=== PATIENT | male | born 1965 | race Caucasian/White ===

== ENCOUNTER 2021-04-05 18:39 | Emergency (ER) | payer MEDICARE ==
[~2021-04-05] VITALS: Ht 172.7 cm; Wt 85.3 kg
[2021-04-05 22:39] LABS: BASOPHILS # (AUTO) 0.1 (0.0-0.1); BASOPHILS % 0.6 % (0.0-1.0); EOSINOPHILS # (AUTO) 0.3 (0.0-0.4); EOSINOPHILS % 2.2 % (0.0-6.0); HEMATOCRIT 50.7 % (38.2-49.6); HEMOGLOBIN 16.5 g/dL (14.0-18.0); LYMPHOCYTES # (AUTO) 2.3 (1.0-3.2); LYMPHOCYTES % 20.4 % (18.0-39.1); MEAN CORPUSCULAR HEMOGLOBIN 30.8 pg (28-32); MEAN CORPUSCULAR HGB CONC 32.5 g/dL (31-35); MEAN CORPUSCULAR VOLUME 94.8 fL (81-99); MONOCYTES # (AUTO) 0.7 (0.2-0.8); NEUTROPHILS # (AUTO) 7.9 (2.1-6.9); NEUTROPHILS % 70.4 % (38.7-80.0); PLATELET COUNT 227 x10e3/uL (140-360); RED BLOOD COUNT 5.35 x10e6/uL (4.3-5.7); RED CELL DISTRIBUTION WIDTH 13.3 % (11.7-14.4)
[2021-04-05] MEDS ORDERED: LIDOCAINE JELLY 2% 10ML URO-JET TOP ONE (22:45)
[2021-04-05 22:47] LABS: INR 0.98; PROTHROMBIN TIME 13.2 seconds (11.9-14.5)
[2021-04-05 22:48] LABS: PARTIAL THROMBOPLASTIN TIME 29.9 seconds (23.8-35.5)
[2021-04-05 22:55] LABS: ALBUMIN 4.5 g/dL (3.5-5.0); ALBUMIN/GLOBULIN RATIO 1.2 (0.8-2.0); ALKALINE PHOSPHATASE 110 IU/L (40-150); ANION GAP 14.7 mmol/L (8-16); BLOOD UREA NITROGEN 27 mg/dL (7-26); BUN/CREATININE RATIO 26 (6-25); CALCIUM 9.7 mg/dL (8.4-10.2); CARBON DIOXIDE 27 mmol/L (22-29); CHLORIDE 103 mmol/L (98-107); CREATININE, SERUM 1.05 mg/dL (0.72-1.25); EST GLOMERULAR FILTRATION RATE 73 ML/MIN (60-); GLUCOSE 107 mg/dL (74-118); POTASSIUM 3.7 mmol/L (3.5-5.1); SODIUM 141 mmol/L (136-145)
[2021-04-05 22:56] LABS: ALANINE AMINOTRANSFERASE < 6 IU/L (0-55)
== END 2021-04-05 23:50 | disposition home or self-care (01) ==
LOC: ER 19:28
DX: Z46.6 Encounter for fitting and adjustment of urinary device (principal); R33.9 Retention of urine, unspecified; G20 Parkinson's disease; D68.2 Hereditary deficiency of other clotting factors
CPT/HCPCS: 36415; 80053; 85025; 85610; 85730; 99284

== ENCOUNTER 2021-08-14 14:21 | Inpatient (IN) | payer MEDICARE ==
[~2021-08-14] VITALS: Ht 172.7 cm; Wt 85.3 kg
[2021-08-14] MEDS ORDERED: SODIUM CHLORIDE 0.9% 1000ML 1,000 ML IV STA ×2 (14:44→15:34)
[2021-08-14 15:14] LABS: BASOPHILS # (AUTO) 0.1 (0.0-0.1); BASOPHILS % 0.3 % (0.0-1.0); HEMOGLOBIN 15.2 g/dL (14.0-18.0); LYMPHOCYTES # (AUTO) 1.5 (1.0-3.2); LYMPHOCYTES % 4.1 % (18.0-39.1); MEAN CORPUSCULAR HEMOGLOBIN 31.1 pg (28-32); MEAN CORPUSCULAR VOLUME 94.3 fL (81-99); MONOCYTES # (AUTO) 2.3 (0.2-0.8); MONOCYTES % 6.1 % (4.4-11.3); NEUTROPHILS # (AUTO) 30.3 (2.1-6.9); NEUTROPHILS % 82.3 % (38.7-80.0); PLATELET COUNT 250 x10e3/uL (140-360); RED BLOOD COUNT 4.88 x10e6/uL (4.3-5.7); RED CELL DISTRIBUTION WIDTH 13.2 % (11.7-14.4)
[2021-08-14] MEDS ORDERED: MEROPENEM 1 GM in SODIUM CHLORIDE 0.9% 100 ML IV ONE (15:15)
[2021-08-14 15:26] LABS: INR 2.12; PARTIAL THROMBOPLASTIN TIME 55.1 seconds (23.8-35.5)
[2021-08-14 15:30] LABS: ALBUMIN 3.5 g/dL (3.5-5.0); ALBUMIN/GLOBULIN RATIO 0.8 (0.8-2.0); ANION GAP 19.6 mmol/L (8-16); CREATININE, SERUM 2.37 mg/dL (0.72-1.25); MAGNESIUM 1.8 MG/DL (1.3-2.1); POTASSIUM 4.6 mmol/L (3.5-5.1)
[2021-08-14 15:36] LABS: CREATINE KINASE MB 15.8 ng/mL (0-5.0)
[2021-08-14 15:45] LABS: CLARITY,URINE CLOUDY (CLEAR); COLOR,URINE AMBER (YELLOW)
[2021-08-14 15:46] LABS: KETONES,URINE 2+ (NEGATIVE); LEUKOCYTE ESTERASE ,URINE LARGE (NEGATIVE); NITRITE,URINE POSITIVE (NEGATIVE); PROTEIN,URINE DIPSTICK >=300 (NEGATIVE); URINE UROBILINOGEN 1 mg/dL (0.2 - 1)
[2021-08-14 15:47] LABS: B-TYPE NATRIURETIC PEPTIDE2 483.3 pg/mL (0-100)
[2021-08-14 15:48] LABS: BACTERIA,URINE MANY /HPF; EPITHELIAL CELLS,URINE RARE /LPF; RBC,URINE 0-5 /HPF (0-5); WBC,URINE (MAN) >50 /HPF (0-5)
[2021-08-14 15:51] LABS: AMORPHOUS SEDIMENT,URINE MODERATE (FEW)
[2021-08-14 15:53] LABS: CALCIUM OXALATE CRYSTALS,UR RARE (FEW)
[2021-08-14 16:26] LABS: BAND NEUTROPHILS % (MANUAL) 15 %; EOSINOPHILS % (MANUAL) 1 % (0-7); LYMPHOCYTES % (MANUAL) 5 % (19-48); MONOCYTES % (MANUAL) 7 % (3.4-9.0); NEUTROPHILS % (MANUAL) 72 % (40-74)
[2021-08-14 16:27] LABS: PLATELET ESTIMATE ADEQUATE; PLATELET MORPHOLOGY COMMENT NORMAL; RBC MORPHOLOGY COMMENT NORMAL
[2021-08-14] MEDS ORDERED: SINEMET 25-1001 EACH PO ×2 (16:33)
[2021-08-14] MEDS ORDERED: XARELTO10 MG PO (16:33)
[2021-08-14] MEDS ORDERED: MIDODRINE HCL5 MG PO (16:33)
[2021-08-14] MEDS ORDERED: D3 PO (16:34)
[2021-08-14] MEDS ORDERED: B12 ACTIVE1000 MCG PO (16:34)
[2021-08-14] MEDS ORDERED: FISH OIL 1,0001 EAC2 PO (16:35)
[2021-08-14] MEDS ORDERED: ONDANSETRON HCL INJ 2MG/ML 2ML 2 MG/ML VIAL IV PRN (17:45)
[2021-08-14] MEDS: ACETAMINOPHEN 1000 MG/100 ML IV SCH (17:47)
[2021-08-14] MEDS: FAMOTIDINE 20 MG/2 ML VIAL IV SCH (18:03)
[2021-08-14] MEDS: SODIUM CHLORIDE 0.9% 1000ML 1,000 ML IV SCH (18:03)
[2021-08-14] MEDS ORDERED: MIDODRINE 2.5 MG TAB PO SCH (19:00)
[2021-08-14] MEDS ORDERED: SODIUM CHLORIDE 0.9% 500ML 500 ML IV ONE (19:00)
[2021-08-14 20:10] VITALS: BP 85/57
[2021-08-14 21:05] LABS: CREATINE KINASE MB 11.6 ng/mL (0-5.0)
[2021-08-14 21:57] VITALS: BP 85/57
[2021-08-14] MEDS ORDERED: MEROPENEM 1 GM in SODIUM CHLORIDE 0.9% 100 ML 100 ML IV SCH (23:00)
[2021-08-15] VITALS (10 sets, daily range): BP systolic 83–112; BP diastolic 54–67
[2021-08-15] MEDS: SODIUM CHLORIDE 0.9% 1000ML 1,000 ML IV SCH ×3 (01:12→17:45)
[2021-08-15] MEDS: MEROPENEM 1 GM in SODIUM CHLORIDE 0.9% 100 ML IV SCH ×2 (02:50→15:53)
[2021-08-15] MEDS ORDERED: MEROPENEM 1 GM in SODIUM CHLORIDE 0.9% 100 ML 100 ML IV SCH (03:00)
[2021-08-15 03:42] LABS: BASOPHILS # (AUTO) 0.1 (0.0-0.1); BASOPHILS % 0.3 % (0.0-1.0); EOSINOPHILS % 0.1 % (0.0-6.0); HEMATOCRIT 42.2 % (38.2-49.6); HEMOGLOBIN 13.7 g/dL (14.0-18.0); LYMPHOCYTES # (AUTO) 1.9 (1.0-3.2); LYMPHOCYTES % 5.6 % (18.0-39.1); MEAN CORPUSCULAR HEMOGLOBIN 31.1 pg (28-32); MEAN CORPUSCULAR HGB CONC 32.5 g/dL (31-35); MEAN CORPUSCULAR VOLUME 95.9 fL (81-99); MONOCYTES # (AUTO) 1.5 (0.2-0.8); MONOCYTES % 4.3 % (4.4-11.3); NEUTROPHILS # (AUTO) 28.4 (2.1-6.9); NEUTROPHILS % 83.6 % (38.7-80.0); PLATELET COUNT 223 x10e3/uL (140-360); RED CELL DISTRIBUTION WIDTH 13.4 % (11.7-14.4)
[2021-08-15 03:53] LABS: ALBUMIN 2.7 g/dL (3.5-5.0); ALBUMIN/GLOBULIN RATIO 0.7 (0.8-2.0); ANION GAP 11.7 mmol/L (8-16); CALCIUM 8.7 mg/dL (8.4-10.2); CHOL/HDL RATIO 2.3 (3.9-4.7); CREATININE, SERUM 1.33 mg/dL (0.72-1.25); POTASSIUM 4.7 mmol/L (3.5-5.1)
[2021-08-15 03:59] LABS: CREATINE KINASE MB 12.3 ng/mL (0-5.0)
[2021-08-15] MEDS: FAMOTIDINE 20 MG/2 ML VIAL IV SCH ×2 (05:53→17:11)
[2021-08-15] MEDS: ACETAMINOPHEN 1000 MG/100 ML IV SCH ×3 (06:00→09:19)
[2021-08-15] MEDS: MIDODRINE 2.5 MG TAB PO SCH ×3 (09:19→16:15)
[2021-08-15] MEDS ORDERED: ACETAMINOPHEN 325 MG TAB PO PRN (10:15)
[2021-08-15] MEDS ORDERED: ASPIRIN 81 MG CHEW TAB PO ONE (10:15)
[2021-08-15 10:17] LABS: CREATINE KINASE MB 7.4 ng/mL (0-5.0)
[2021-08-15] MEDS: CHOLECALCIFEROL 1,000 UNIT TAB PO SCH (11:08)
[2021-08-15] MEDS: OMEGA 3 POLYUNSAT FATTY ACIDS 1000 MG SOFTGEL PO SCH (11:08)
[2021-08-15] MEDS ORDERED: CARBIDOPA/LEVODOPA 25/100 TAB PO SCH ×2 (11:30→13:00)
[2021-08-15] MEDS ORDERED: MIDODRINE HCL 5 MG TABLET PO SCH ×2 (15:00→16:00)
[2021-08-15] MEDS ORDERED: ACETAMINOPHEN 1000 MG/100 ML IV PRN (15:45)
[2021-08-15] MEDS: RIVAROXABAN 10 MG TABLET PO SCH (17:16)
[2021-08-15] MEDS: CARBIDOPA/LEVODOPA 25/100 TAB PO SCH ×2 (17:16→21:04)
[2021-08-16] VITALS (9 sets, daily range): BP systolic 92–123; BP diastolic 65–79
[2021-08-16] MEDS: SODIUM CHLORIDE 0.9% 1000ML 1,000 ML IV SCH ×3 (00:57→16:44)
[2021-08-16] MEDS: MEROPENEM 1 GM in SODIUM CHLORIDE 0.9% 100 ML IV SCH ×2 (02:42→14:36)
[2021-08-16] MEDS: FAMOTIDINE 20 MG/2 ML VIAL IV SCH (05:43)
[2021-08-16 05:55] LABS: BASOPHILS # (AUTO) 0.1 (0.0-0.1); BASOPHILS % 0.2 % (0.0-1.0); EOSINOPHILS # (AUTO) 0.2 (0.0-0.4); EOSINOPHILS % 0.8 % (0.0-6.0); HEMATOCRIT 37.4 % (38.2-49.6); LYMPHOCYTES # (AUTO) 1.9 (1.0-3.2); LYMPHOCYTES % 7.2 % (18.0-39.1); MEAN CORPUSCULAR HEMOGLOBIN 30.7 pg (28-32); MEAN CORPUSCULAR HGB CONC 32.1 g/dL (31-35); MEAN CORPUSCULAR VOLUME 95.7 fL (81-99); MONOCYTES % 3.6 % (4.4-11.3); NEUTROPHILS # (AUTO) 22.6 (2.1-6.9); NEUTROPHILS % 85.3 % (38.7-80.0); PLATELET COUNT 204 x10e3/uL (140-360); RED BLOOD COUNT 3.91 x10e6/uL (4.3-5.7); RED CELL DISTRIBUTION WIDTH 13.6 % (11.7-14.4)
[2021-08-16 06:45] LABS: ALBUMIN 2.4 g/dL (3.5-5.0); ALBUMIN/GLOBULIN RATIO 0.7 (0.8-2.0); ANION GAP 11.9 mmol/L (8-16); CALCIUM 8.8 mg/dL (8.4-10.2); CREATININE, SERUM 0.75 mg/dL (0.72-1.25); POTASSIUM 3.9 mmol/L (3.5-5.1)
[2021-08-16 07:44] LABS: CREATINE KINASE MB 1.9 ng/mL (0-5.0)
[2021-08-16] MEDS ORDERED: ONDANSETRON HCL 4 MG ORAL DISINTEGRATING TAB PO PRN (07:45)
[2021-08-16] MEDS: MIDODRINE 2.5 MG TAB PO SCH ×2 (08:00→12:00)
[2021-08-16] MEDS: MIDODRINE HCL 5 MG TABLET PO SCH ×3 (08:00→16:44)
[2021-08-16 08:22] LABS: BAND NEUTROPHILS % (MANUAL) 4 %; LYMPHOCYTES % (MANUAL) 1 % (19-48); MONOCYTES % (MANUAL) 2 % (3.4-9.0); NEUTROPHILS % (MANUAL) 93 % (40-74); PLATELET ESTIMATE ADEQUATE; PLATELET MORPHOLOGY COMMENT NORMAL; RBC MORPHOLOGY COMMENT NORMAL
[2021-08-16] MEDS: MECOBALAMIN 1000 MCG PO SCH (08:44)
[2021-08-16] MEDS: FAMOTIDINE 20 MG TAB PO SCH ×2 (09:00→21:00)
[2021-08-16] MEDS: CARBIDOPA/LEVODOPA 25/100 TAB PO SCH ×4 (09:00→21:00)
[2021-08-16] MEDS: CHOLECALCIFEROL 1,000 UNIT TAB PO SCH (09:00)
[2021-08-16] MEDS: OMEGA 3 POLYUNSAT FATTY ACIDS 1000 MG SOFTGEL PO SCH (09:00)
[2021-08-16] MEDS: RIVAROXABAN 10 MG TABLET PO SCH (16:44)
[2021-08-17] VITALS (14 sets, daily range): BP systolic 119–148; BP diastolic 71–94
[2021-08-17] MEDS: SODIUM CHLORIDE 0.9% 1000ML 1,000 ML IV SCH ×2 (01:40→08:02)
[2021-08-17] MEDS: MEROPENEM 1 GM in SODIUM CHLORIDE 0.9% 100 ML IV SCH ×2 (02:51→15:59)
[2021-08-17 06:47] LABS: BASOPHILS # (AUTO) 0.1 (0.0-0.1); BASOPHILS % 0.4 % (0.0-1.0); EOSINOPHILS # (AUTO) 0.2 (0.0-0.4); EOSINOPHILS % 1.1 % (0.0-6.0); HEMATOCRIT 38.4 % (38.2-49.6); HEMOGLOBIN 12.9 g/dL (14.0-18.0); LYMPHOCYTES # (AUTO) 1.3 (1.0-3.2); LYMPHOCYTES % 7.7 % (18.0-39.1); MEAN CORPUSCULAR HEMOGLOBIN 31.2 pg (28-32); MEAN CORPUSCULAR HGB CONC 33.6 g/dL (31-35); MEAN CORPUSCULAR VOLUME 92.8 fL (81-99); MONOCYTES # (AUTO) 0.8 (0.2-0.8); MONOCYTES % 4.5 % (4.4-11.3); NEUTROPHILS # (AUTO) 14.5 (2.1-6.9); NEUTROPHILS % 85.8 % (38.7-80.0); PLATELET COUNT 215 x10e3/uL (140-360); RED BLOOD COUNT 4.14 x10e6/uL (4.3-5.7); RED CELL DISTRIBUTION WIDTH 13.4 % (11.7-14.4)
[2021-08-17 07:22] LABS: ALBUMIN 2.3 g/dL (3.5-5.0); ALBUMIN/GLOBULIN RATIO 0.6 (0.8-2.0); ANION GAP 11.8 mmol/L (8-16); CREATININE, SERUM 0.74 mg/dL (0.72-1.25); POTASSIUM 3.8 mmol/L (3.5-5.1)
[2021-08-17] MEDS: MECOBALAMIN 1000 MCG PO SCH (07:34)
[2021-08-17 07:40] LABS: CALCIUM 8.4 mg/dL (8.4-10.2)
[2021-08-17] MEDS: OMEGA 3 POLYUNSAT FATTY ACIDS 1000 MG SOFTGEL PO SCH (08:02)
[2021-08-17] MEDS: FAMOTIDINE 20 MG TAB PO SCH ×2 (08:02→21:00)
[2021-08-17] MEDS: CARBIDOPA/LEVODOPA 25/100 TAB PO SCH ×4 (08:02→21:00)
[2021-08-17] MEDS: CHOLECALCIFEROL 1,000 UNIT TAB PO SCH (08:02)
[2021-08-17] MEDS: MIDODRINE HCL 5 MG TABLET PO SCH ×3 (08:02→17:16)
[2021-08-17] MEDS: RIVAROXABAN 10 MG TABLET PO SCH (17:16)
[2021-08-18] VITALS (14 sets, daily range): BP systolic 90–136; BP diastolic 41–100
[2021-08-18] MEDS: MEROPENEM 1 GM in SODIUM CHLORIDE 0.9% 100 ML IV SCH (03:00)
[2021-08-18 05:41] LABS: BASOPHILS # (AUTO) 0.1 (0.0-0.1); BASOPHILS % 0.5 % (0.0-1.0); EOSINOPHILS # (AUTO) 0.3 (0.0-0.4); HEMATOCRIT 41.7 % (38.2-49.6); HEMOGLOBIN 13.5 g/dL (14.0-18.0); LYMPHOCYTES # (AUTO) 1.8 (1.0-3.2); LYMPHOCYTES % 14.7 % (18.0-39.1); MEAN CORPUSCULAR HEMOGLOBIN 30.3 pg (28-32); MEAN CORPUSCULAR HGB CONC 32.4 g/dL (31-35); MEAN CORPUSCULAR VOLUME 93.7 fL (81-99); MONOCYTES # (AUTO) 0.8 (0.2-0.8); MONOCYTES % 6.6 % (4.4-11.3); NEUTROPHILS # (AUTO) 9.1 (2.1-6.9); NEUTROPHILS % 73.9 % (38.7-80.0); PLATELET COUNT 251 x10e3/uL (140-360); RED BLOOD COUNT 4.45 x10e6/uL (4.3-5.7); RED CELL DISTRIBUTION WIDTH 13.2 % (11.7-14.4)
[2021-08-18 06:27] LABS: ALBUMIN 2.4 g/dL (3.5-5.0); ALBUMIN/GLOBULIN RATIO 0.6 (0.8-2.0); ANION GAP 12.7 mmol/L (8-16); CALCIUM 8.8 mg/dL (8.4-10.2); CREATININE, SERUM 0.75 mg/dL (0.72-1.25); POTASSIUM 3.7 mmol/L (3.5-5.1)
[2021-08-18] MEDS: MECOBALAMIN 1000 MCG PO SCH (09:00)
[2021-08-18] MEDS: MIDODRINE HCL 5 MG TABLET PO SCH ×3 (09:27→17:00)
[2021-08-18] MEDS: CHOLECALCIFEROL 1,000 UNIT TAB PO SCH (09:27)
[2021-08-18] MEDS: FAMOTIDINE 20 MG TAB PO SCH ×2 (09:27→22:50)
[2021-08-18] MEDS: CARBIDOPA/LEVODOPA 25/100 TAB PO SCH ×4 (09:27→22:50)
[2021-08-18] MEDS: CIPROFLOXACIN 500 MG TAB PO SCH ×2 (09:27→17:00)
[2021-08-18] MEDS: OMEGA 3 POLYUNSAT FATTY ACIDS 1000 MG SOFTGEL PO SCH (09:27)
[2021-08-18 09:40] LABS: BAND NEUTROPHILS % (MANUAL) 1 %; EOSINOPHILS % (MANUAL) 2 % (0-7); LYMPHOCYTES % (MANUAL) 13 % (19-48); MONOCYTES % (MANUAL) 3 % (3.4-9.0); NEUTROPHILS % (MANUAL) 77 % (40-74)
[2021-08-18 09:41] LABS: PLATELET ESTIMATE ADEQUATE; PLATELET MORPHOLOGY COMMENT NORMAL; RBC MORPHOLOGY COMMENT NORMAL
[2021-08-18] MEDS: RIVAROXABAN 10 MG TABLET PO SCH (17:00)
[2021-08-19] VITALS (8 sets, daily range): BP systolic 99–128; BP diastolic 75–89
[2021-08-19 05:53] LABS: BASOPHILS # (AUTO) 0.1 (0.0-0.1); BASOPHILS % 0.5 % (0.0-1.0); EOSINOPHILS # (AUTO) 0.2 (0.0-0.4); HEMATOCRIT 40.9 % (38.2-49.6); HEMOGLOBIN 13.8 g/dL (14.0-18.0); LYMPHOCYTES # (AUTO) 2.4 (1.0-3.2); LYMPHOCYTES % 20.1 % (18.0-39.1); MEAN CORPUSCULAR HEMOGLOBIN 31.3 pg (28-32); MEAN CORPUSCULAR HGB CONC 33.7 g/dL (31-35); MEAN CORPUSCULAR VOLUME 92.7 fL (81-99); MONOCYTES # (AUTO) 0.8 (0.2-0.8); NEUTROPHILS # (AUTO) 7.6 (2.1-6.9); NEUTROPHILS % 64.8 % (38.7-80.0); PLATELET COUNT 284 x10e3/uL (140-360); RED BLOOD COUNT 4.41 x10e6/uL (4.3-5.7); RED CELL DISTRIBUTION WIDTH 13.1 % (11.7-14.4)
[2021-08-19 06:16] LABS: ALBUMIN 2.5 g/dL (3.5-5.0); ALBUMIN/GLOBULIN RATIO 0.7 (0.8-2.0); ANION GAP 11.9 mmol/L (8-16); CALCIUM 8.9 mg/dL (8.4-10.2); CREATININE, SERUM 0.75 mg/dL (0.72-1.25); POTASSIUM 3.9 mmol/L (3.5-5.1)
[2021-08-19] MEDS: MIDODRINE HCL 5 MG TABLET PO SCH ×3 (08:00→17:00)
[2021-08-19] MEDS: FAMOTIDINE 20 MG TAB PO SCH ×2 (09:00→20:28)
[2021-08-19] MEDS: CHOLECALCIFEROL 1,000 UNIT TAB PO SCH (09:00)
[2021-08-19] MEDS: CARBIDOPA/LEVODOPA 25/100 TAB PO SCH ×4 (09:00→20:28)
[2021-08-19] MEDS: OMEGA 3 POLYUNSAT FATTY ACIDS 1000 MG SOFTGEL PO SCH (09:00)
[2021-08-19] MEDS: CIPROFLOXACIN 500 MG TAB PO SCH ×2 (09:00→17:00)
[2021-08-19] MEDS: MECOBALAMIN 1000 MCG PO SCH (09:00)
[2021-08-19] MEDS ORDERED: BISACODYL 10 MG SUPP PR ONE (11:30)
[2021-08-19] MEDS: POLYETHYLENE GLYCOL 3350 17 GM PACK PO SCH (11:30)
[2021-08-19] MEDS: RIVAROXABAN 10 MG TABLET PO SCH (17:00)
[2021-08-20] VITALS (9 sets, daily range): BP systolic 97–137; BP diastolic 65–88
[2021-08-20 05:38] LABS: BASOPHILS # (AUTO) 0.1 (0.0-0.1); BASOPHILS % 0.7 % (0.0-1.0); EOSINOPHILS # (AUTO) 0.3 (0.0-0.4); EOSINOPHILS % 2.3 % (0.0-6.0); HEMATOCRIT 42.4 % (38.2-49.6); HEMOGLOBIN 13.6 g/dL (14.0-18.0); LYMPHOCYTES # (AUTO) 2.2 (1.0-3.2); LYMPHOCYTES % 17.1 % (18.0-39.1); MEAN CORPUSCULAR HEMOGLOBIN 30.9 pg (28-32); MEAN CORPUSCULAR HGB CONC 32.1 g/dL (31-35); MEAN CORPUSCULAR VOLUME 96.4 fL (81-99); MONOCYTES # (AUTO) 0.8 (0.2-0.8); MONOCYTES % 6.3 % (4.4-11.3); NEUTROPHILS # (AUTO) 8.6 (2.1-6.9); PLATELET COUNT 303 x10e3/uL (140-360)
[2021-08-20 06:04] LABS: ALBUMIN 2.7 g/dL (3.5-5.0); ALBUMIN/GLOBULIN RATIO 0.7 (0.8-2.0); ANION GAP 12.9 mmol/L (8-16); CALCIUM 9.2 mg/dL (8.4-10.2); CREATININE, SERUM 0.82 mg/dL (0.72-1.25); POTASSIUM 3.9 mmol/L (3.5-5.1)
[2021-08-20] MEDS: MECOBALAMIN 1000 MCG PO SCH (08:06)
[2021-08-20] MEDS: DOCUSATE SODIUM 100 MG CAP PO SCH (08:06)
[2021-08-20] MEDS: CARBIDOPA/LEVODOPA 25/100 TAB PO SCH ×4 (08:06→21:24)
[2021-08-20] MEDS: POLYETHYLENE GLYCOL 3350 17 GM PACK PO SCH (08:06)
[2021-08-20] MEDS: MIDODRINE HCL 5 MG TABLET PO SCH ×3 (08:06→16:28)
[2021-08-20] MEDS: CIPROFLOXACIN 500 MG TAB PO SCH ×2 (08:06→16:27)
[2021-08-20] MEDS: FAMOTIDINE 20 MG TAB PO SCH ×2 (08:06→21:24)
[2021-08-20] MEDS: OMEGA 3 POLYUNSAT FATTY ACIDS 1000 MG SOFTGEL PO SCH (08:06)
[2021-08-20] MEDS: CHOLECALCIFEROL 1,000 UNIT TAB PO SCH (08:07)
[2021-08-20] MEDS: SENNOSIDES 8.6 MG TAB PO SCH (08:07)
[2021-08-20 11:33] LABS: EOSINOPHILS % (MANUAL) 4 % (0-7); LYMPHOCYTES % (MANUAL) 13 % (19-48); MONOCYTES % (MANUAL) 9 % (3.4-9.0); NEUTROPHILS % (MANUAL) 74 % (40-74); PLATELET ESTIMATE ADEQUATE; PLATELET MORPHOLOGY COMMENT FEW LARGE; RBC MORPHOLOGY COMMENT NORMAL
[2021-08-20] MEDS: RIVAROXABAN 10 MG TABLET PO SCH (16:28)
[2021-08-21] VITALS (8 sets, daily range): BP systolic 94–127; BP diastolic 67–84
[2021-08-21 07:18] LABS: BASOPHILS # (AUTO) 0.1 (0.0-0.1); BASOPHILS % 0.6 % (0.0-1.0); EOSINOPHILS # (AUTO) 0.2 (0.0-0.4); EOSINOPHILS % 1.6 % (0.0-6.0); HEMATOCRIT 42.9 % (38.2-49.6); LYMPHOCYTES # (AUTO) 1.9 (1.0-3.2); LYMPHOCYTES % 16.5 % (18.0-39.1); MEAN CORPUSCULAR HEMOGLOBIN 30.6 pg (28-32); MEAN CORPUSCULAR HGB CONC 32.6 g/dL (31-35); MEAN CORPUSCULAR VOLUME 93.7 fL (81-99); MONOCYTES # (AUTO) 0.6 (0.2-0.8); MONOCYTES % 5.4 % (4.4-11.3); NEUTROPHILS # (AUTO) 8.1 (2.1-6.9); NEUTROPHILS % 69.6 % (38.7-80.0); PLATELET COUNT 357 x10e3/uL (140-360); RED BLOOD COUNT 4.58 x10e6/uL (4.3-5.7)
[2021-08-21 07:59] LABS: ALBUMIN 2.8 g/dL (3.5-5.0); ALBUMIN/GLOBULIN RATIO 0.7 (0.8-2.0); ANION GAP 12.1 mmol/L (8-16); CALCIUM 9.2 mg/dL (8.4-10.2); CREATININE, SERUM 0.73 mg/dL (0.72-1.25); POTASSIUM 4.1 mmol/L (3.5-5.1)
[2021-08-21] MEDS: MECOBALAMIN 1000 MCG PO SCH (08:35)
[2021-08-21] MEDS: OMEGA 3 POLYUNSAT FATTY ACIDS 1000 MG SOFTGEL PO SCH (08:35)
[2021-08-21] MEDS: CHOLECALCIFEROL 1,000 UNIT TAB PO SCH (08:35)
[2021-08-21] MEDS: DOCUSATE SODIUM 100 MG CAP PO SCH (08:35)
[2021-08-21] MEDS: CARBIDOPA/LEVODOPA 25/100 TAB PO SCH ×4 (08:35→20:27)
[2021-08-21] MEDS: FAMOTIDINE 20 MG TAB PO SCH ×2 (08:35→20:27)
[2021-08-21] MEDS: SENNOSIDES 8.6 MG TAB PO SCH (08:35)
[2021-08-21] MEDS: POLYETHYLENE GLYCOL 3350 17 GM PACK PO SCH (08:35)
[2021-08-21] MEDS: MIDODRINE HCL 5 MG TABLET PO SCH ×3 (08:35→17:39)
[2021-08-21] MEDS: CIPROFLOXACIN 500 MG TAB PO SCH ×2 (08:35→17:39)
[2021-08-21] MEDS: RIVAROXABAN 10 MG TABLET PO SCH (17:39)
[2021-08-22] VITALS (7 sets, daily range): BP systolic 93–114; BP diastolic 67–87
[2021-08-22] MEDS: CIPROFLOXACIN 500 MG TAB PO SCH ×2 (08:13→16:55)
[2021-08-22] MEDS: MECOBALAMIN 1000 MCG PO SCH (08:13)
[2021-08-22] MEDS: SENNOSIDES 8.6 MG TAB PO SCH (08:13)
[2021-08-22] MEDS: DOCUSATE SODIUM 100 MG CAP PO SCH (08:13)
[2021-08-22] MEDS: POLYETHYLENE GLYCOL 3350 17 GM PACK PO SCH (08:13)
[2021-08-22] MEDS: OMEGA 3 POLYUNSAT FATTY ACIDS 1000 MG SOFTGEL PO SCH (08:13)
[2021-08-22] MEDS: CARBIDOPA/LEVODOPA 25/100 TAB PO SCH ×4 (08:13→20:35)
[2021-08-22] MEDS: FAMOTIDINE 20 MG TAB PO SCH ×2 (08:13→20:35)
[2021-08-22] MEDS: MIDODRINE HCL 5 MG TABLET PO SCH ×3 (08:13→16:55)
[2021-08-22] MEDS: CHOLECALCIFEROL 1,000 UNIT TAB PO SCH (08:13)
[2021-08-23] VITALS: BP 102/70
[2021-08-23 04:00] VITALS: BP 109/74
[2021-08-23 07:58] VITALS: BP 115/80
[2021-08-23] MEDS: DOCUSATE SODIUM 100 MG CAP PO SCH (08:18)
[2021-08-23] MEDS: MIDODRINE HCL 5 MG TABLET PO SCH ×3 (08:18→17:06)
[2021-08-23] MEDS: MECOBALAMIN 1000 MCG PO SCH (08:18)
[2021-08-23] MEDS: POLYETHYLENE GLYCOL 3350 17 GM PACK PO SCH (08:18)
[2021-08-23] MEDS: CARBIDOPA/LEVODOPA 25/100 TAB PO SCH ×4 (08:18→21:05)
[2021-08-23] MEDS: CHOLECALCIFEROL 1,000 UNIT TAB PO SCH (08:18)
[2021-08-23] MEDS: CIPROFLOXACIN 500 MG TAB PO SCH ×2 (08:18→17:06)
[2021-08-23] MEDS: FAMOTIDINE 20 MG TAB PO SCH ×2 (08:18→21:05)
[2021-08-23] MEDS: OMEGA 3 POLYUNSAT FATTY ACIDS 1000 MG SOFTGEL PO SCH (08:18)
[2021-08-23] MEDS: SENNOSIDES 8.6 MG TAB PO SCH (08:18)
[2021-08-23 09:56] VITALS: BP 115/80
[2021-08-23 11:39] VITALS: BP 111/80
[2021-08-23 20:00] VITALS: BP 102/83
[2021-08-24] VITALS: BP 93/66
[2021-08-24 04:00] VITALS: BP 97/70
[2021-08-24 05:02] LABS: BASOPHILS # (AUTO) 0.1 (0.0-0.1); BASOPHILS % 0.7 % (0.0-1.0); EOSINOPHILS # (AUTO) 0.2 (0.0-0.4); EOSINOPHILS % 1.9 % (0.0-6.0); HEMATOCRIT 43.5 % (38.2-49.6); HEMOGLOBIN 13.8 g/dL (14.0-18.0); LYMPHOCYTES # (AUTO) 2.5 (1.0-3.2); LYMPHOCYTES % 28.8 % (18.0-39.1); MEAN CORPUSCULAR HEMOGLOBIN 30.5 pg (28-32); MEAN CORPUSCULAR HGB CONC 31.7 g/dL (31-35); MEAN CORPUSCULAR VOLUME 96.2 fL (81-99); MONOCYTES # (AUTO) 0.4 (0.2-0.8); MONOCYTES % 4.9 % (4.4-11.3); NEUTROPHILS # (AUTO) 5.1 (2.1-6.9); NEUTROPHILS % 59.9 % (38.7-80.0); PLATELET COUNT 428 x10e3/uL (140-360); RED BLOOD COUNT 4.52 x10e6/uL (4.3-5.7)
[2021-08-24 05:35] LABS: ANION GAP 12.1 mmol/L (8-16); CALCIUM 9.1 mg/dL (8.4-10.2); CREATININE, SERUM 0.86 mg/dL (0.72-1.25); POTASSIUM 4.1 mmol/L (3.5-5.1)
[2021-08-24 07:58] VITALS: BP 97/70
[2021-08-24 08:10] VITALS: BP 107/71
[2021-08-24] MEDS: CIPROFLOXACIN 500 MG TAB PO SCH ×2 (08:57→17:36)
[2021-08-24] MEDS: DOCUSATE SODIUM 100 MG CAP PO SCH (08:57)
[2021-08-24] MEDS: MIDODRINE HCL 5 MG TABLET PO SCH ×3 (08:57→17:36)
[2021-08-24] MEDS: FAMOTIDINE 20 MG TAB PO SCH ×2 (08:58→21:32)
[2021-08-24] MEDS: POLYETHYLENE GLYCOL 3350 17 GM PACK PO SCH (08:58)
[2021-08-24] MEDS: OMEGA 3 POLYUNSAT FATTY ACIDS 1000 MG SOFTGEL PO SCH (08:58)
[2021-08-24] MEDS: SENNOSIDES 8.6 MG TAB PO SCH (08:58)
[2021-08-24] MEDS: MECOBALAMIN 1000 MCG PO SCH (08:58)
[2021-08-24] MEDS: CHOLECALCIFEROL 1,000 UNIT TAB PO SCH (08:58)
[2021-08-24] MEDS: CARBIDOPA/LEVODOPA 25/100 TAB PO SCH ×4 (09:40→21:32)
[2021-08-24 20:00] VITALS: BP 116/77
[2021-08-24 21:00] VITALS: BP 116/77
[2021-08-25] VITALS (8 sets, daily range): BP systolic 95–122; BP diastolic 68–81
[2021-08-25] MEDS: MECOBALAMIN 1000 MCG PO SCH (09:00)
[2021-08-25] MEDS: CIPROFLOXACIN 500 MG TAB PO SCH ×2 (09:35→18:00)
[2021-08-25] MEDS: MIDODRINE HCL 5 MG TABLET PO SCH ×3 (09:35→18:00)
[2021-08-25] MEDS: DOCUSATE SODIUM 100 MG CAP PO SCH (09:36)
[2021-08-25] MEDS: SENNOSIDES 8.6 MG TAB PO SCH (09:36)
[2021-08-25] MEDS: POLYETHYLENE GLYCOL 3350 17 GM PACK PO SCH (09:36)
[2021-08-25] MEDS: OMEGA 3 POLYUNSAT FATTY ACIDS 1000 MG SOFTGEL PO SCH (09:36)
[2021-08-25] MEDS: FAMOTIDINE 20 MG TAB PO SCH ×2 (09:36→20:55)
[2021-08-25] MEDS: CHOLECALCIFEROL 1,000 UNIT TAB PO SCH (09:37)
[2021-08-25] MEDS: CARBIDOPA/LEVODOPA 25/100 TAB PO SCH ×4 (09:37→20:56)
[2021-08-26 01:02] VITALS: BP 108/75
[2021-08-26 04:58] LABS: BASOPHILS # (AUTO) 0.1 (0.0-0.1); BASOPHILS % 0.5 % (0.0-1.0); EOSINOPHILS # (AUTO) 0.2 (0.0-0.4); EOSINOPHILS % 1.6 % (0.0-6.0); HEMOGLOBIN 13.6 g/dL (14.0-18.0); LYMPHOCYTES % 21.6 % (18.0-39.1); MEAN CORPUSCULAR HEMOGLOBIN 30.5 pg (28-32); MEAN CORPUSCULAR HGB CONC 31.6 g/dL (31-35); MEAN CORPUSCULAR VOLUME 96.4 fL (81-99); MONOCYTES # (AUTO) 0.5 (0.2-0.8); MONOCYTES % 5.8 % (4.4-11.3); NEUTROPHILS # (AUTO) 6.4 (2.1-6.9); NEUTROPHILS % 69.1 % (38.7-80.0); PLATELET COUNT 366 x10e3/uL (140-360); RED BLOOD COUNT 4.46 x10e6/uL (4.3-5.7); RED CELL DISTRIBUTION WIDTH 12.8 % (11.7-14.4)
[2021-08-26 05:23] LABS: ALBUMIN 3.2 g/dL (3.5-5.0); ALBUMIN/GLOBULIN RATIO 0.8 (0.8-2.0); CALCIUM 9.4 mg/dL (8.4-10.2); CREATININE, SERUM 0.9 mg/dL (0.72-1.25)
[2021-08-26 05:58] VITALS: BP 107/68
[2021-08-26 07:46] VITALS: BP 107/68
[2021-08-26] MEDS ORDERED: CIPROFLOXACIN500 MG PO (08:18)
[2021-08-26 08:59] VITALS: BP 107/75
[2021-08-26] MEDS: MECOBALAMIN 1000 MCG PO SCH (09:00)
[2021-08-26] MEDS: POLYETHYLENE GLYCOL 3350 17 GM PACK PO SCH (09:42)
[2021-08-26] MEDS: MIDODRINE HCL 5 MG TABLET PO SCH (09:42)
[2021-08-26] MEDS: DOCUSATE SODIUM 100 MG CAP PO SCH (09:42)
[2021-08-26] MEDS: CIPROFLOXACIN 500 MG TAB PO SCH (09:42)
[2021-08-26] MEDS: OMEGA 3 POLYUNSAT FATTY ACIDS 1000 MG SOFTGEL PO SCH (09:42)
[2021-08-26] MEDS: SENNOSIDES 8.6 MG TAB PO SCH (09:49)
[2021-08-26] MEDS: FAMOTIDINE 20 MG TAB PO SCH (09:49)
[2021-08-26] MEDS: CHOLECALCIFEROL 1,000 UNIT TAB PO SCH (09:49)
== END 2021-08-26 11:44 | DRG 698 ==
LOC: ER 14:36 → ERHOLD 17:53 → IMCU 19:50 → MED/SURG2 08-18 16:45
PROVIDERS: ADMIT Internal Medicine; ATTEND Internal Medicine
DX: T83.510A Infection and inflammatory reaction due to cystostomy catheter, initial encounter (principal); A41.52 Sepsis due to Pseudomonas; N17.0 Acute kidney failure with tubular necrosis; J69.0 Pneumonitis due to inhalation of food and vomit; J96.90 Respiratory failure, unspecified, unspecified whether with hypoxia or hypercapnia; R65.20 Severe sepsis without septic shock; A41.81 Sepsis due to Enterococcus; M62.82 Rhabdomyolysis; D68.2 Hereditary deficiency of other clotting factors; N30.00 Acute cystitis without hematuria; G20 Parkinson's disease; I69.320 Aphasia following cerebral infarction; Z86.711 Personal history of pulmonary embolism; W06.XXXA Fall from bed, initial encounter; Y93.89 Activity, other specified; Z86.718 Personal history of other venous thrombosis and embolism; Y92.122 Bedroom in nursing home as the place of occurrence of the external cause; R53.81 Other malaise; Z20.822 Contact with and (suspected) exposure to COVID-19
CPT/HCPCS: 36415; 70450; 71045; 72125; 74176; 74230; 80048; 80053; 80061; 81001; 82550; 82553; 83605; 83735; 83880; 84484; 85025; 85610; 85730; 87040; 87086; 87186; 93005; 94799; 97139; 99284; J2185; J7030; J7050; U0002